=== PATIENT | male | born 1930 ===

== ENCOUNTER → 2017-04-23 | Outpatient (CLI) | payer MEDICARE, BC ==
[2017-04-23 12:18] LABS: ANION GAP 9.6 (10.0-19.0); CALCIUM 8.5 mg/dL (8.5-10.5); CREATININE 1.4 mg/dL (0.6-1.3); POTASSIUM 4.6 mMol/L (3.7-5.1)
== END ==
LOC: LGSOS 11:33
PROVIDERS: Internal Medicine Interventional Cardiology
DX: I48.0 Paroxysmal atrial fibrillation (principal)